=== PATIENT | male | born 1965 | race Caucasian/White ===

== ENCOUNTER → 2018-01-10 | Outpatient (CLI) | payer OTHER, MEDICAID | LOC: BHFA 13:15 | PROVIDERS: ATTEND Internal Medicine Cardiovascular Disease | DX: I25.41 Coronary artery aneurysm (principal) ==

== ENCOUNTER → 2018-01-11 | Outpatient (CLI) | payer OTHER, MEDICAID | LOC: CIMAGING 09:59 | PROVIDERS: ATTEND Family Medicine | DX: J98.4 Other disorders of lung (principal) | CPT/HCPCS: 71046-PO ==

== ENCOUNTER 2018-04-25 13:25 | Emergency (ER) | payer OTHER, MEDICAID ==
[2018-04-25 13:31] VITALS: BP 172/114
--- NOTE | 2018-04-25 14:18 | EDPHY ---
H & P Time Seen by Provider: 04/25/18 13:50 HPI/ROS: CHIEF COMPLAINT: Right foot pain HISTORY OF PRESENT ILLNESS: 52-year-old male with a chronic history of right foot drop states yesterday he took a step and felt a pop in his right foot and the mid lateral portion of his foot. He has reproducible foot pain with ambulation ever since. No fall from height. No object fell on him. No paresthesia. No acute sensory or motor deficits. No discoloration PHYSICAL EXAM (Prior to examination, patient consented to physical exam, hands were washed and my usual and customary physical exam procedures followed) 1) GENERAL: Well-developed, well-nourished, alert and oriented. Appears to be in no acute distress. 2) HEAD: Normocephalic 3) HEENT: Pupils equal, round, reactive to light bilaterally. 4) LUNGS: Breathing comfortably. 5) MUSCULOSKELETAL: Normal coloration. Soft compartments. No visible signs of trauma. No laceration or abrasion no ecchymosis. Tender to palpation dorsal dorsal midfoot lateral aspect of the foot. proximal tibia and fibula nontender .5th MT nontender negative Dorsey test, compartments soft 6) SKIN: Intact no signs of 7) VASCULAR: DP,PT pulses and cap refill present and brisk DIFFERENTIAL DIAGNOSIS: in no particular order including but not limited to fracture, sprain, compartment syndrome Procedure: Splint A ana boot splint was applied by ER robotic maintenance technician. Initially a postop shoe was placed however did not like the way it is felt and preferred the immobilization and security of the Tama boot. After application of the splint I returned and re-examined the patient. The splint was adequately immobilizing the joint and distal to the splint the patient's circulation and sensation were intact. Patient shows no signs of compartment syndrome. Was given orthopedic precautions. Smoking Status: Former smoker Constitutional: Initial Vital Signs Temperature (C) 36.9 C 04/25/18 13:28 Heart Rate 99 04/25/18 13:28 Respiratory Rate 16 04/25/18 13:28 Blood Pressure 172/114 H 04/25/18 13:28 O2 Sat (%) 93 04/25/18 13:28 O2 Delivery Mode Room Air Allergies/Adverse Reactions: Penicillins Allergy (Unknown, Verified 01/14/14 01:28) Home Medications: Medication Instructions Recorded fluPHENAZine HCL [Prolixin] 1 mg PO 06/30/13 Lurasidone HCl [Latuda 40MG (RX)] 01/14/14 Fluoxetine HCl [Prozac 40 mg] 40 mg PO 07/23/14 Lisinopril 10 mg PO DAILY 07/23/14 buPROPion [Wellbutrin 75mg (RX)] 07/23/14 MDM/Departure - [facility] Imaging Results: Imaging Impressions Foot X-Ray 04/25/18 13:31 Impression: Negative right foot radiographs. Images reviewed myself ED Course/Re-evaluation: The patient I discussed limitations of x-ray. Informed that non osseous injury not ruled out. No evidence of compartment syndrome or signs of infection. Recommend elevation, usual and customary orthopedic precautions and instructions provided. Recommend follow up with Orthopedics. He feels comfortable being discharged. All questions and concerns addressed by myself. I saw this patient independently based on established practice protocols. Care of patient under supervision of secondary supervising physician Dr Allen. - Depart Disposition: Home, Routine, Self-Care Clinical Impression: Right foot sprain Qualifiers: Encounter type: initial encounter Qualified Code(s): S93.601A - Unspecified sprain of right foot, initial encounter Condition: Good Instructions: Foot Sprain (ED) Additional Instructions: Return to the ER immediately if you experience discoloration, have worsening pain, numbness, tingling, or any other symptoms that concern you. If you received x-rays in the emergency department today, be advised, that ligamentous , tendon, muscular, and other non-bony injury cannot be fully ruled out. Try to keep your affected extremity elevated above the level of your chest, and keep cold packs on the affected area, for the next 48 hours. Referrals: Allen Johns MD [Medical Doctor] - 2-3 days, call for appt.
== END 2018-04-25 14:36 | disposition home or self-care (01) ==
DX: S93.601A Unspecified sprain of right foot, initial encounter (principal); Z87.891 Personal history of nicotine dependence; X50.9XXA Other and unspecified overexertion or strenuous movements or postures, initial encounter; Y99.8 Other external cause status; Y93.89 Activity, other specified

== ENCOUNTER → 2019-03-28 | Outpatient (CLI) | payer OTHER, MEDICAID | LOC: BHFA 14:45 | PROVIDERS: ATTEND Internal Medicine Cardiovascular Disease | DX: I71.9 Aortic aneurysm of unspecified site, without rupture (principal) ==